=== PATIENT | female | born 1955 | race American Indian/Alaskan Native ===

== ENCOUNTER 2019-02-24 22:48 | Emergency (ER) | payer SELFPAY ==
[2019-02-24 22:58] VITALS: BP 125/91
--- NOTE | 2019-03-08 08:16 | Emergency Department Report ---
Blank Doc - Documentation Documentation: Patient left without being seen This note has been generated by me, Dr. Evgeny Reid III, MD, the [employer] for the emergency department. I have not seen this patient personally.
== END 2019-02-24 23:30 | disposition left against medical advice (07) ==
LOC: ED 22:48
DX: S61.214A Laceration without foreign body of right ring finger without damage to nail, initial encounter (principal); W26.8XXA Contact with other sharp object(s), not elsewhere classified, initial encounter; Y93.89 Activity, other specified; Y92.89 Other specified places as the place of occurrence of the external cause; Y99.8 Other external cause status; Z53.21 Procedure and treatment not carried out due to patient leaving prior to being seen by health care provider

== ENCOUNTER 2020-08-18 18:42 | Emergency (ER) | payer SELFPAY ==
[2020-08-18 18:53] VITALS: BP 148/98
[2020-08-18] MEDS ORDERED: RABIES VACCINE, HUMAN DIPLOID/PF 2.5 UNIT/ML VIAL IM ONE (23:58)
[2020-08-18] MEDS ORDERED: RABIES IMMUNE GLOBULIN P/F 300 UNIT/ML INJ 5 ML IM ONE (23:58)
[2020-08-19] MEDS ORDERED: DIPHtheria,PERTUSSIS(ACELL),TETANUS VACCINE/PF 0.5 ML VIAL IM ONE (00:12)
--- NOTE | 2020-08-19 00:15 | Emergency Department Report ---
ED Animal Bite HPI - General Chief Complaint: Animal Bite Stated Complaint: DOG BITE Time Seen by Provider: 08/18/20 23:25 Source: patient Mode of arrival: Ambulatory Limitations: No Limitations - History of Present Illness Initial Comments: This is a 64-year-old female brought by mother nontoxic, well nourished in appearance, no acute signs of distress presents to the ED with c/o of dog bite to right upper arm and right thigh that occured this evening. Patient stated that this was a neighbor dog that bite her. Patient was told that dog does not have any rabies shots. Patient denies any head trauma or any other trauma. Patient states that she is not up-to-date with tetanus. Patient denies any fever, chills, nausea, vomiting, headache, stiff neck. Patient denies any allergies or significant past medical history. Patient stated police and animal control are notified. MD Complaint: animal bite -: This evening Right: Arm, Thigh Animal: dog Animal Control Notified: Yes Description: household pet Mechanism: bite Severity scale (0 -10): 8 Context: unprovoked Associated Symptoms: none. denies: erythema, discharge from wound, bleeding, fever, chills, rash, loss of consciousness, cough, headache, diaphoresis, brandon rtness of breath - Related Data Patient Tetanus UTD: No Previous Rx's Medication Instructions Recorded Last Taken Type Amoxicillin/K Clav Tab [Augmentin 1 tab PO Q12HR #20 tab 08/19/20 Unknown Rx 875 mg] Ibuprofen [Motrin] 600 mg PO Q8H PRN #12 tablet 08/19/20 Unknown Rx Allergies Allergy/AdvReac Type Severity Reaction Status Date / Time No Known Allergies Allergy Verified 08/18/20 23:59 ED Review of Systems ROS: Stated complaint: DOG BITE Other details as noted in HPI Comment: All other systems reviewed and negative Constitutional: denies: chills, fever Eyes: denies: eye pain, eye discharge, vision change ENT: denies: ear pain, throat pain Respiratory: denies: cough, shortness of breath, wheezing Cardiovascular: denies: chest pain, palpitations Endocrine: no symptoms reported Gastrointestinal: denies: abdominal pain, nausea, diarrhea Genitourinary: denies: urgency, dysuria, discharge Musculoskeletal: denies: back pain, joint swelling, arthralgia Skin: denies: rash, lesions Neurological: denies: headache, weakness, paresthesias Psychiatric: denies: anxiety, depression Hematological/Lymphatic: denies: easy bleeding, easy bruising ED Past Medical Hx - Past Medical History Previous Medical History?: Yes Hx Hypertension: Yes - Surgical History Past Surgical History?: No - Medications Home Medications: Home Medications Medication Instructions Recorded Confirmed Last Taken Type Amoxicillin/K Clav Tab [Augmentin 1 tab PO Q12HR #20 tab 08/19/20 Unknown Rx 875 mg] Ibuprofen [Motrin] 600 mg PO Q8H PRN #12 tablet 08/19/20 Unknown Rx ED Physical Exam - General Limitations: No Limitations General appearance: alert, in no apparent distress - Head Head exam: Present: atraumatic, normocephalic - Eye Eye exam: Present: normal appearance - Neck Neck exam: Present: normal inspection, full ROM. Absent: tenderness, meningismus, lymphadenopathy - Respiratory Respiratory exam: Absent: respiratory distress - GI/Abdominal GI/Abdominal exam: Present: soft, normal bowel sounds. Absent: distended, t enderness, guarding, rebound, rigid, diminished bowel sounds - Extremities Exam Extremities exam: Present: normal inspection, full ROM, tenderness, normal capillary refill. Absent: joint swelling - Expanded Upper Extremity Exam Right General: Present: normal inspection Shoulder Exam: Present: normal inspection, full ROM. Absent: tenderness, swelling, abrasion, laceration, ecchymosis, deformity, crepidus, dislocation, erythema, tenderness over AC joint Upper Arm exam: Present: full ROM, tenderness, laceration (1 cm superficial with no foreign body). Absent: swelling, abrasion, ecchymosis, deformity, crepidus, dislocation, erythema Elbow exam: Present: normal inspection, full ROM. Absent: tenderness, swelling Forearm Wrist exam: Present: normal inspection, full ROM. Absent: tenderness, swelling Hand Wrist exam: Present: normal inspection, full ROM. Absent: tenderness, swelling Vascular: Present: normal capillary refill. Absent: vascular compromise (Neurovascular within normal limits) - Expanded Lower Extremity Exam Right Hip exam: Present: normal inspection, full ROM, external rotation, internal rotation, pelvic stability. Absent: tenderness, swelling, abrasion, laceration, ecchymosis, deformity, crepidus, dislocation, erythema, shortening Upper Leg exam: Present: full ROM, tenderness, laceration (2 cm lac with no foreign body noted). Absent: swelling, abrasion, ecchymosis, deformity, crepidus, dislocation, erythema Knee exam: Present: normal inspection, full ROM. Absent: tenderness, swelling Lower Leg exam: Present: normal inspection, full ROM. Absent: tenderness, swelling Ankle exam: Present: normal inspection, full ROM. Absent: tenderness, swelling Foot/Toe exam: Present: normal inspection, full ROM. Absent: tenderness, swelling Neuro vascular tendon exam: Present: no vascular compromise Gait: Positive: observed and normal 1 - 2 cm lac - Back Exam Back exam: Present: normal inspection - Neurological Exam Neurological exam: Present: alert, oriented X3, normal gait - Psychiatric Psychiatric exam: Present: normal affect, normal mood - Skin Skin exam: Present: warm, dry, intact, normal color. Absent: rash ED Course Vital Signs 08/18/20 18:51 Temperature 97.6 F Pulse Rate 112 H Respiratory 18 Rate Blood Pressure 148/98 [Right] O2 Sat by Pulse 98 Oximetry - Reevaluation(s) Reevaluation #1: 08/19/20 00:15 Patient is speaking in full sentences with no signs of distress noted. - Laceration /Wound Repair Right Thigh Wound Location: lower extremity (Right thigh) Wound Length (cm): 2 Wound's Depth, Shape: superficial Wound Explored: clean Irrigated w/ Saline (ccs): 40 Betadine Prep?: Yes Volume Anesthetic (ccs): 3 (2% lidocaine plain) Wound Repaired With: sutures Suture Size/Type: 4:0, proline Number of Sutures: 1 Layer Closure?: No Sterile Dressing Applied?: Yes Progress: Under sterile field, I used Betadine to clean the area. I then used 40 mL of normal saline to flush the area. I then used 2% lidocaine plain and injected 3 mL to the wound. I then used a 4-0 Prolene to suture the laceration. Number of stitches 1 very loosely. I then applied a sterile 4 x 4 with tape. Minimal bleeding noted but is under control. Patient tolerated procedure well with no signs of distress. Right Arm Wound Location: upper extremity (right upper arm) Wound Length (cm): 1 Wound's Depth, Shape: superficial Wound Explored: clean Irrigated w/ Saline (ccs): 40 Betadine Prep?: Yes Volume Anesthetic (ccs): 2 (2% lidocaine plain) Wound Repaired With: sutures Suture Size/Type: 4:0, proline Number of Sutures: 1 (Loosely) Layer Closure?: No Sterile Dressing Applied?: Yes Progress: Under sterile field, I used Betadine to clean the area. I then used 40 mL of normal saline to flush the area. I then used 2% lidocaine plain and injected 2 mL to the wound. I then used a 4-0 Prolene to suture the laceration. Number of stitches 1 very loosely. I then applied a sterile 4 x 4 with tape. Minimal bleeding noted but is under control. Patient tolerated procedure well with no signs of distress. Critical care attestation.: If time is entered above; I have spent that time in minutes in the direct care of this critically ill patient, excluding procedure time. ED Disposition Clinical Impression: Laceration Dog bite Qualifiers: Encounter type: initial encounter Qualified Code(s): W54.0XXA - Bitten by dog, initial encounter Disposition: DC-01 TO HOME OR SELFCARE Is pt being admited?: No Does the pt Need Aspirin: No Condition: Stable Instructions: Animal Bite, Adult, Dybo-ji-Ytgl, Laceration Care, Adult Additional Instructions: Follow-up with a primary care doctor in 3-5 days or if symptoms worsen and continue return to emergency room as soon as possible. Return in 10 days for suture removal. You must complete the rabies vaccines on 08/22/2020, 08/26/2020, 09/02/2020. Prescriptions: Amoxicillin/K Clav Tab [Augmentin 875 mg] 1 tab PO Q12HR #20 tab Ibuprofen [Motrin] 600 mg PO Q8H PRN #12 tablet PRN Reason: Pain Referrals: PRIMARY CARE, [Primary Care Provider] - 3-5 Days HOUSTON PLATT MD [Staff Physician] - 3-5 Days ED Medical Decision Making - Radiology Data Referring Physician: JOSE E HARTLEY Patient Name: TREVON LAW Date of : 1955 Sex: Female Report Date: 2020-08-19 Report Status: Finalized [address] [address] XRay Report Signed Patient: TREVON LAW MR#: [id number] 4 : 1955 Acct:[id number] Age/Sex: 64 / F ADM Date: 08/18/20 Loc: ED Attending Dr: Ordering Physician: JOSE E HARTLEY NP Date of Service: 08/18/20 Procedure(s): XR humerus 2+V RT Accession Number(s): [id number] cc: JOSE E HARTLEY NP Fluoro Time In Minutes: RIGHT HUMERUS RADIOGRAPH, 2 VIEWS INDICATION / CLINICAL INFORMATION: dog bite COMPARISON: None available. FINDINGS: BONES / JOINT(S): No acute displaced fracture or subluxation. No significant arthritis. SOFT TISSUES: Mild soft tissue swelling of the right upper extremity. No radiopaque foreign object identified. ADDITIONAL FINDINGS: None. Signer Name: Lorri Zaragoza MD Signed: 08/19/2020 12:22 AM Workstation Name: [id number] Transcribed By: [facility] Dictated By: Lorri Zaragoza MD Electronically Authenticated By: Lorri Zaragoza MD Signed Date/Time: 08/19/2021 DD/ TD/TT: Referring Physician: JOSE E HARTLEY Patient Name: TREVON LAW Date of : 1955 Sex: Female Report Date: 2020-08-19 Report Status: Finalized [address] [address] XRay Report Signed Patient: TREVON LAW MR#: [id number] 4 : 1955 Acct:[id number] Age/Sex: 64 / F ADM Date: 08/18/20 Loc: ED Attending Dr: Ordering Physician: JOSE E HARTLEY NP Date of Service: 08/18/20 Procedure(s): XR humerus 2+V RT Accession Number(s): [id number] cc: JOSE E HARTLEY NP Fluoro Time In Minutes: RIGHT HUMERUS RADIOGRAPH, 2 VIEWS INDICATION / CLINICAL INFORMATION: dog bite COMPARISON: None available. FINDINGS: BONES / JOINT(S): No acute displaced fracture or subluxation. No significant arthritis. SOFT TISSUES: Mild soft tissue swelling of the right upper extremity. No radiopaque foreign object identified. ADDITIONAL FINDINGS: None. Signer Name: Lorri Zaragoza MD Signed: 08/19/2020 12:22 AM Workstation Name: [id number] Transcribed By: [facility] Dictated By: Lorri Zaragoza MD Electronically Authenticated By: Lorri Zaragoza MD Signed Date/Time: 08/19/2021 DD/ TD/TT: Referring Physician: JOSE E HARTLEY Patient Name: TREVON LAW Date of : 1955 Sex: Female Report Date: 2020-08-19 Report Status: [place] [address] XRay Report Signed Patient: TREVON LAW MR#: [id number] 4 : 1955 ct:[id number] Age/Sex: 64 / F ADM Date: 08/18/20 Loc: ED Attending Dr: Ordering Physician: JOSE E HARTLEY NP Date of Service: 08/18/20 Procedure(s): XR femur 2+V RT Accession Number(s): [id number] cc: JOSE E HARTLEY NP Fluoro Time In Minutes: RIGHT FEMUR RADIOGRAPH, 2 VIEWS INDICATION / CLINICAL INFORMATION: dog bite COMPARISON: None available. FINDINGS: BONES / JOINT(S): No acute displaced fracture or subluxation. Moderate osteoarthritis of the knee. SOFT TISSUES: Soft tissue swelling along the lateral aspect of the thigh. No radiopaque foreign object identified. ADDITIONAL FINDINGS: None. Signer Name: Lorri Zaragoza MD Signed: 08/19/2020 12:24 AM Workstation Name: [id number] Transcribed By: [facility] Dictated By: Lorri Zaragoza MD Electronically Authenticated By: Lorri Zaragoza MD Signed Date/Time: 08/19/2023 DD/ TD/TT: - Medical Decision Making This is a 64-year-old female that presents with dog bite. Patient is stable was examined by me. Patient received immunoglobulin and rabies vaccine. Patient was instructed to receive the full rabies immunizations on days number 3, 7, and 14. Patient is discharged with Augmentin and motrin. The bite wound has been cleaned with soap and water and a sterile dressing has been applied. Patient was also instructed to return in 10 days for suture removal. A suture has been placed loosely to approximate the laceration. Patient was educated on proper wound care. Patient was instructed to Follow-up with a primary care doctor in 3-5 days or if symptoms worsen and continue return to emergency room as soon as possible. At time of discharge, the patient does not seem toxic or ill in appearance. No acute signs of distress noted. Patient agrees to discharge treatment plan of care. No further questions noted by the patient.
--- NOTE | 2020-08-19 00:27 | XRay Report ---
RIGHT HUMERUS RADIOGRAPH, 2 VIEWS INDICATION / CLINICAL INFORMATION: dog bite COMPARISON: None available. FINDINGS: BONES / JOINT(S): No acute displaced fracture or subluxation. No significant arthritis. SOFT TISSUES: Mild soft tissue swelling of the right upper extremity. No radiopaque foreign object id entified. ADDITIONAL FINDINGS: None. Signer Name: Lorri Zaragoza MD Signed: 08/19/2020 12:22 AM Workstation Name: [id number]
--- NOTE | 2020-08-19 00:28 | XRay Report ---
RIGHT FEMUR RADIOGRAPH, 2 VIEWS INDICATION / CLINICAL INFORMATION: dog bite COMPARISON: None available. FINDINGS: BONES / JOINT(S): No acute displaced fracture or subluxation. Moderate osteoarthritis of the knee. SOFT TISSUES: Soft tissue swelling along the lateral aspect of the thigh. No radiopaque foreign objec t identified. ADDITIONAL FINDINGS: None. Signer Name: Lorri Zaragoza MD Signed: 08/19/2020 12:24 AM Workstation Name: [id number]
== END 2020-08-19 01:15 | disposition home or self-care (01) ==
LOC: ED 18:42
DX: S41.111A Laceration without foreign body of right upper arm, initial encounter (principal); S71.112A Laceration without foreign body, left thigh, initial encounter; I10 Essential (primary) hypertension; Z79.1 Long term (current) use of non-steroidal anti-inflammatories (NSAID); Z79.2 Long term (current) use of antibiotics; W54.0XXA Bitten by dog, initial encounter; Y93.89 Activity, other specified; Y92.89 Other specified places as the place of occurrence of the external cause; Y99.8 Other external cause status
CPT/HCPCS: 90375; 90471; 90675; 96372

== ENCOUNTER 2020-11-09 12:03 | Emergency (ER) | payer BC ==
[2020-11-09] MEDS ORDERED: BENZONATATE 100 MG CAP PO ONE (12:40)
[2020-11-09] MEDS ORDERED: ONDANSETRON 4 MG ODT TAB PO ONE (12:40)
[2020-11-09 12:56] LABS: Basophils % (Auto) 0.5 % (0.0-1.8); Eosinophils # (Auto) 0.1 K/mm3 (0.0-0.4); Eosinophils % (Auto) 1.3 % (0.0-4.3); Hematocrit 34.1 % (30.3-42.9); Hemoglobin 11.2 gm/dl (10.1-14.3); Lymphocytes # (Auto) 1.4 K/mm3 (1.2-5.4); Lymphocytes % (Auto) 24.6 % (13.4-35.0); Mean Corpuscular HGB Conc 33 % (30-34); Mean Corpuscular Volume 90 fl (79-97); Monocytes # (Auto) 0.5 K/mm3 (0.0-0.8); Monocytes % (Auto) 8.3 % (0.0-7.3); Platelet Count 342 K/mm3 (140-440); Red Cell Distribution Width 15.7 % (13.2-15.2)
--- NOTE | 2020-11-09 13:06 | XRay Report ---
ACUTE ABDOMINAL SERIES 3 VIEWS INDICATION: abd pain, cough. COMPARISON: No relevant prior imaging study available. FINDINGS: No acute findings on the included chest radiograph. Bowel gas pattern is within normal limits. There is mild constipation. No abnormal calcifications are seen. IMPRESSION: 1. No radiographic evidence of acute abdomen. Signer Name: Gerry Goss MD Signed: 11/09/2020 1:02 PM Workstation Name: [id number]
[2020-11-09 13:22] LABS: Alanine Aminotransferase 14 units/L (7-56); Albumin 3.8 g/dL (3.9-5); BUN/Creatinine Ratio 10; Blood Urea Nitrogen 9 mg/dL (7-17); Calcium 8.6 mg/dL (8.4-10.2); Hemolysis Index 10
[2020-11-09] MEDS ORDERED: POTASSIUM CHLORIDE ER 20 MEQ TAB PO ONE (13:23)
--- NOTE | 2020-11-09 13:23 | Emergency Department Report ---
HPI - General Chief Complaint: Abdominal Pain Time Seen by Provider: 11/09/20 12:18 - HPI HPI: This is a 64-year-old female who presents to the emergency department with complaint of sinus congestion causing a headache, nausea with vomiting, a productive cough with white sputum, and some constipation with mild abdominal discomfort. All this has been going on for the past week. The patient says that she has tried some kkal-cow-ayzlroo medications for her symptoms including stool softeners, without any relief. She has a past medical history of hyper tension. She denies any shortness of breath, chest pain, loss of taste or smell, fever, diarrhea, dysuria. No recent travel or sick contacts at home. No known exposure to anyone with COVID-19. ED Past Medical Hx - Past Medical History Previous Medical History?: Yes Hx Hypertension: Yes - Surgical History Past Surgical History?: No - Social History Smoking Status: Former Smoker - Medications Home Medications: Home Medications Medication Instructions Recorded Confirmed Last Taken Type Amoxicillin/K Clav Tab [Augmentin 1 tab PO Q12HR #20 tab 08/19/20 Unknown Rx 875 mg] Ibuprofen [Motrin] 600 mg PO Q8H PRN #12 tablet 08/19/20 Unknown Rx Cetirizine HCl [Zyrtec 10mg tab] 10 mg PO QDAY #10 tablet 11/09/20 Unknown Rx Docusate Sodium [Colace] 100 mg PO BID PRN #20 capsule 11/09/20 Unknown Rx Fluticasone [Flonase] 1 spray NS QDAY #1 bottle 11/09/20 Unknown Rx guaiFENesin/CODEINE [Robitussin AC] 5 ml PO Q6H PRN #100 oral.liqd 11/09/20 Unknown Rx ED Review of Systems ROS: Stated complaint: COUGHING,NAUSEA & VOMITING Other details as noted in HPI Comment: All other systems reviewed and negative Constitutional: denies: chills, fever Eyes: denies: eye pain, vision change ENT: ear pain, congestion Respiratory: cough. denies: shortness of breath Cardiovascular: denies: chest pain, palpitations Gastrointestinal: abdominal pain, nausea, constipation. denies: diarrhea Genitourinary: denies: dysuria, discharge Musculoskeletal: denies: back pain, arthralgia Skin: denies: rash, lesions Neurological: headache. denies: weakness, numbness, paresthesias Physical Exam - Physical Exam Vital Signs: Vital Signs 11/09/20 11/09/20 11/09/20 12:11 12:28 12:58 Temperature 98.4 F Pulse Rate 89 68 Respiratory 17 19 19 Rate Blood Pressure 134/83 Blood Pressure 124/83 [Left] O2 Sat by Pulse 96 99 Oximetry Physical Exam: GENERAL: The patient is well-developed well-nourished. HENT: Normocephalic. Atraumatic. Patient has moist mucous membranes. Oropharynx is clear without any tonsillar hypertrophy, erythema or exudates. Normal-appearing bilateral tympanic membranes and patent external ear canals. EYES: Extraocular motions are intact. Pupils equal reactive to light bilaterally. NECK: Supple. Trachea is midline. CHEST/LUNGS: Clear to auscultation. No cough heard during examination. No tach ypnea or accessory muscle use. There is no respiratory distress noted. HEART/CARDIOVASCULAR: Regular. There is no tachycardia. There is no murmur. ABDOMEN: Abdomen is soft. Mild abdominal tenderness to palpation. No guarding. Patient has normal bowel sounds. There is no abdominal distention. SKIN: Skin is warm and dry. NEURO: The patient is awake, alert, and oriented. The patient is cooperative. The patient has no focal neurologic deficits. Normal speech. MUSCULOSKELETAL: There is no tenderness or deformity. There is no limitation range of motion. ED Course Vital Signs 11/09/20 11/09/20 11/09/20 12:11 12:28 12:58 Temperature 98.4 F Pulse Rate 89 68 Respiratory 17 19 19 Rate Blood Pressure 134/83 Blood Pressure 124/83 [Left] O2 Sat by Pulse 96 99 Oximetry ED Medical Decision Making - Lab Data Result diagrams: 11/09/20 12:40 11/09/20 12:40 Lab Results 11/09/20 11/09/20 11/09/20 Range/Units 12:40 12:40 13:07 WBC 5.8 (4.5-11.0) K/mm3 RBC 3.80 (3.65-5.03) M/mm3 Hgb 11.2 (10.1-14.3) gm/dl Hct 34.1 (30.3-42.9) % MCV 90 (79-97) fl MCH 30 (28-32) pg MCHC 33 (30-34) % RDW 15.7 H (13.2-15.2) % Plt Count 342 (140-440) K/mm3 Lymph % (Auto) 24.6 (13.4-35.0) % Chase % (Auto) 8.3 H (0.0-7.3) % Eos % (Auto) 1.3 (0.0-4.3) % Baso % (Auto) 0.5 (0.0-1.8) % Lymph # (Auto) 1.4 (1.2-5.4) K/mm3 Chase # (Auto) 0.5 (0.0-0.8) K/mm3 Eos # (Auto) 0.1 (0.0-0.4) K/mm3 Baso # (Auto) 0.0 (0.0-0.1) K/mm3 Seg Neutrophils % 65.3 (40.0-70.0) % Seg Neutrophils # 3.8 (1.8-7.7) K/mm3 Sodium 144 (137-145) mmol/L Potassium 3.0 L (3.6-5.0) mmol/L Chloride 109.0 H (98-107) mmol/L Carbon Dioxide 26 (22-30) mmol/L Anion Gap 12 mmol/L BUN 9 (7-17) mg/dL Creatinine 0.9 (0.6-1.2) mg/dL Estimated GFR > 60 ml/min BUN/Creatinine Ratio 10 % Glucose 87 (65-100) mg/dL Calcium 8.6 (8.4-10.2) mg/dL Total Bilirubin < 0.20 (0.1-1.2) mg/dL Direct Bilirubin < 0.2 (0-0.2) mg/dL Indirect Bilirubin 0.0 mg/dL AST 21 (5-40) units/L ALT 14 (7-56) units/L Alkaline Phosphatase 54 (35-129) units/L Total Protein 6.1 L (6.3-8.2) g/dL Albumin 3.8 L (3.9-5) g/dL Albumin/Globulin Ratio 1.7 % Lipase 37 (13-60) units/L Urine Color Straw (Yellow) Urine Turbidity Clear (Clear) Urine pH 6.0 (5.0-7.0) Ur Specific [place] 1.005 (1.003-1.030) Urine Protein <15 mg/dl (Negative) mg/dL Urine Glucose (UA) Neg (Negative) mg/dL Urine Ketones Tr (Negative) mg/dL Urine Blood Neg (Negative) Urine Nitrite Neg (Negative) Urine Bilirubin Neg (Negative) Urine Urobilinogen < 2.0 (<2.0) mg/dL Ur Leukocyte Esterase Neg (Negative) Urine WBC (Auto) < 1.0 (0.0-6.0) /HPF Urine RBC (Auto) 1.0 (0.0-6.0) /HPF - Radiology Data Radiology results: image reviewed interpreted by me: Chest x-ray does not show any acute process. There are no pleural effusions, obvious pneumonia and there is no pneumothorax. No significant cardiomegaly. Abdominal x-ray shows nonspecific nonobstructive bowel gas. Increased stool volume. No free air. - Medical Decision Making This patient presents with a 1 week history of multiple symptoms including a cough, sinus congestion with a sinus headache, abdominal discomfort, nausea, constipation. Heart and lung sounds are normal to auscultation. There is some reproducible mild abdominal tenderness to palpation. However the abdomen is soft, nondistended and nontoxic in appearance. Chest x-ray does not show any pneumonia, pleural effusions, pneumothorax, or any other acute process. Abdominal x-ray shows increased stool volume. Otherwise there is nonspecific nonobstructive bowel gas. No free air. The patient's labs have been mostly unremarkable including CBC, metabolic panel and urinalysis. There is mild hypokalemia with a potassium of 3 that was replaced with potassium chloride. Vital signs have been reassuring throughout her ED course including being afebrile. Patient appears safe for discharge home at this time. She has been instructed to follow-up with her primary care physician in the next few days. Given her set of symptoms, as well as this current pandemic, it is possible the patient could have COVID-19. We are unable to test her for this with [id number]-sp-ikot testing at this time and the patient does not require admission. She has been instructed to seek outpatient COVID-19 testing. We discussed quarantine and isolation from those who are immunocompromised, elderly and chronically ill/debilitated. The patient has been given a prescription for Flonase, Zyrtec, Colace and Robitussin-AC. She will return to the emergency department with any worsening of her symptoms or with any acute distress. Critical Care Time: No Critical care attestation.: If time is entered above; I have spent that time in minutes in the direct care of this critically ill patient, excluding procedure time. ED Disposition Clinical Impression: Sinus congestion, Viral syndrome, Hypokalemia Upper respiratory infection Qualifiers: URI type: unspecified URI Qualified Code(s): J06.9 - Acute upper respiratory infection, unspecified Disposition: DC-01 TO HOME OR SELFCARE Is pt being admited?: No Condition: Stable Instructions: Upper Respiratory Infection, Adult, Sinus Headache, Viral Illness, Adult, Abdominal Pain (ED) Additional Instructions: Please follow-up with your primary care physician in the next few days. Given your symptoms, as well as this current pandemic, it is possible that you could have COVID-19. Unfortunately I am unable to test you for COVID-19 through the emergency department at this time. I recommend that you try to quarantine or isolate away from those who are immunocompromised, chronically ill/debili tated or elderly. Please seek outpatient COVID-19 testing. This can be done at some primary care offices, some urgent cares, and there should be a listing of testing facilities through the [facility]. Take all medications as prescribed. You have been prescribed a medication that is sedating and therefore should not be taken prior to driving, working, and responsible for children and in no way should be mixed with alcohol of any quantity. Return to the emergency department with any worsening of your symptoms, new or concerning symptoms not addressed during this current emergency department visit, or with any acute distress. Prescriptions: Docusate Sodium [Colace] 100 mg PO BID PRN #20 capsule PRN Reason: Constipation Fluticasone [Flonase] 1 spray NS QDAY #1 bottle guaiFENesin/CODEINE [Robitussin AC] 5 ml PO Q6H PRN #100 oral.liqd PRN Reason: Cough Cetirizine HCl [Zyrtec 10mg tab] 10 mg PO QDAY #10 tablet Referrals: MARYLU BULLOCK MD [Primary Care Provider] - 3-5 Days Time of Disposition: 14:41
[2020-11-09 13:34] LABS: Bilirubin,Direct < 0.2 mg/dL (0-0.2)
[2020-11-09 14:26] LABS: Bilirubin,Urine NEG (Negative); Blood,Urine NEG (Negative); Color,Urine Straw (Yellow); Protein,Urine <15 mg/dL mg/dL (Negative); Urobilinogen,Urine < 2.0 mg/dL (<2.0); WBC,Urine < 1.0 /HPF (0.0-6.0)
[2020-11-09 15:08] VITALS: BP 118/88
== END 2020-11-09 15:08 | disposition home or self-care (01) ==
LOC: ED 12:03
DX: J06.9 Acute upper respiratory infection, unspecified (principal); B34.9 Viral infection, unspecified; E87.6 Hypokalemia; R09.81 Nasal congestion; I10 Essential (primary) hypertension; Z87.891 Personal history of nicotine dependence; Z79.1 Long term (current) use of non-steroidal anti-inflammatories (NSAID); Z79.2 Long term (current) use of antibiotics; Z79.899 Other long term (current) drug therapy
CPT/HCPCS: 36415; 74022; 80048; 80076; 81001; 83690; 85025; Q0162

== ENCOUNTER 2020-11-17 17:28 | Emergency (ER) | payer BC ==
[2020-11-17 17:32] VITALS: BP 155/91
--- NOTE | 2020-11-17 18:16 | XRay Report ---
CHEST 2 VIEWS INDICATION / CLINICAL INFORMATION: cough. COMPARISON: 11/09/20 FINDINGS: SUPPORT DEVICES: None. HEART / MEDIASTINUM: No significant abnormality. LUNGS / PLEURA: No significant pulmonary or pleural abnormality. No pneumothorax. ADDITIONAL FINDINGS: No significant additional findings. IMPRESSION: 1. No acute findings. No change. Signer Name: Yonathan Goodrich MD Signed: 11/17/2020 6:11 PM Workstation Name: [id number]
[2020-11-17 18:44] LABS: Basophils # (Auto) 0.1 K/mm3 (0.0-0.1); Eosinophils # (Auto) 0.1 K/mm3 (0.0-0.4); Eosinophils % (Auto) 1.9 % (0.0-4.3); Hematocrit 35.7 % (30.3-42.9); Hemoglobin 12.1 gm/dl (10.1-14.3); Lymphocytes # (Auto) 1.8 K/mm3 (1.2-5.4); Lymphocytes % (Auto) 27.7 % (13.4-35.0); Mean Corpuscular HGB Conc 34 % (30-34); Mean Corpuscular Volume 90 fl (79-97); Monocytes # (Auto) 0.5 K/mm3 (0.0-0.8); Monocytes % (Auto) 7.7 % (0.0-7.3); Platelet Count 309 K/mm3 (140-440); Red Blood Count 3.95 M/mm3 (3.65-5.03); Red Cell Distribution Width 16.3 % (13.2-15.2)
[2020-11-17 19:06] LABS: Alanine Aminotransferase 13 units/L (7-56); BUN/Creatinine Ratio 11; Blood Urea Nitrogen 10 mg/dL (7-17); Calcium 9.2 mg/dL (8.4-10.2); Hemolysis Index 3
--- NOTE | 2020-11-17 20:01 | Emergency Department Report ---
Minor Respiratory - HPI Chief Complaint: Upper Respiratory Infection Stated Complaint: POSSIBLE SINUS INFECTION Time Seen by Provider: 11/17/20 17:41 Pain Location: Throat, Nose Minor Respiratory: Yes Sore Throat, No Rhinorrhea, No Able to Tolerate Fluids, No Ear Pain, No Cough, No Sick Contacts, No Hemoptysis, No Chest Pain, No Shortness of Breath, No Fever Other History: This is a 64-year-old female presents the ED complaining of feeling sick. Patient states that she has been having cough, sore throat and headaches since last week. Patient states she was seen here for same symptoms. Patient states she has been coughing intermittently daily. Patient denies any fever, chills, shortness of breath. She denies being around anyone that is been sick or that has Covid. Patient states that prior medical history positive for hypertension which she takes medication for. Patient states that she has been having a lot of sinus congestion that is not going away. ED Review of Systems ROS: Stated complaint: POSSIBLE SINUS INFECTION Other details as noted in HPI Comment: All other systems reviewed and negative ED Past Medical Hx - Past Medical History Previous Medical History?: Yes Hx Hypertension: Yes - Social History Smoking Status: Former Smoker - Medications Home Medications: Home Medications Medication Instructions Recorded Confirmed Last Taken Type Ibuprofen [Motrin] 600 mg PO Q8H PRN #12 tablet 08/19/20 Unknown Rx Cetirizine HCl [Zyrtec 10mg tab] 10 mg PO QDAY #10 tablet 11/09/20 Unknown Rx Docusate Sodium [Colace] 100 mg PO BID PRN #20 capsule 11/09/20 Unknown Rx Amoxicillin/K Clav Tab [Augmentin 1 tab PO Q12HR #20 tab 11/17/20 Unknown Rx 875MG TAB] Benzonatate [Tessalon Perles] 100 mg PO Q8HR #30 capsule 11/17/20 Unknown Rx Fluticasone [Flonase] 1 spray NS QDAY #1 bottle 11/17/20 Unknown Rx Pseudoephedrine ER [Sudafed 12 Hr] 120 mg PO BID #20 tablet.er 11/17/20 Unknown Rx guaiFENesin/CODEINE [Robitussin AC] 5 ml PO Q6H PRN #100 oral.liqd 11/17/20 Unknown Rx Minor Respiratory Exam - Exam General: Vital signs noted. No distress. Alert and acting appropriately. HEENT: Yes Moist Mucous Membranes, No Pharyngeal Erythema, No Pharyngeal Exudates, No Rhinorrhea, No Conjuctival Injection, No Frontal Tenderness, No Maxillary Tenderness Ear: Neither TM Bulge, Neither TM Erythema, Neither EAC Pain, Neither EAC Discharge Neck: Yes Supple, No Adenopathy Lungs: Yes Good Air Exchange, No Wheezes, No Ronchi, No Stridor, No Cough, No Labored Respirations, No Retractions, No Use of Accessory Muscles, No Other Abnormal Lung Sounds Heart: Yes Regular, No Murmur Abdomen: Yes Normal Bowel Sounds, No Tenderness, No Peritoneal Signs Skin: No Rash, No Edema Neurologic: Alert and oriented, no deficits. Musculoskeletal: Unremarkable. ED Course Vital Signs 11/17/20 17:31 Temperature 98.4 F Pulse Rate 90 Respiratory 16 Rate Blood Pressure 155/91 [Right] O2 Sat by Pulse 96 Oximetry ED Medical Decision Making - Lab Data Result diagrams: 11/17/20 18:20 11/17/20 18:20 Laboratory Tests 11/17/20 11/17/20 18:20 18:20 WBC 6.3 RBC 3.95 Hgb 12.1 Hct 35.7 MCV 90 MCH 31 MCHC 34 RDW 16.3 H Plt Count 309 Lymph % (Auto) 27.7 Mineral % (Auto) 7.7 H Eos % (Auto) 1.9 Baso % (Auto) 1.0 Lymph # (Auto) 1.8 Mineral # (Auto) 0.5 Eos # (Auto) 0.1 Baso # (Auto) 0.1 Seg Neutrophils % 61.7 Seg Neutrophils # 3.9 Sodium 143 Potassium 3.0 L Chloride 105.2 Carbon Dioxide 22 Anion Gap 19 BUN 10 Creatinine 0.9 Estimated GFR > 60 BUN/Creatinine Ratio 11 Glucose 99 Calcium 9.2 Total Bilirubin < 0.20 AST 18 ALT 13 Alkaline Phosphatase 56 Total Protein 6.5 Albumin 4.0 Albumin/Globulin Ratio 1.6 - Radiology Data Radiology results: report reviewed, image reviewed Chest x-ray does not show any acute process. There are no pleural effusions, obvious pneumonia and there is no pneumothorax. No significant cardiomegaly. - Medical Decision Making 64-year-old female presents to the ED with symptoms x1 week. Patient states she is medications with no relief. All labs today were normal. X-ray shows no acute findings. Vital signs were normal throughout ED stay. Patient was afebrile and had no respiratory distress throughout the ED stay. Discussed follow-up with primary care physician patient. Discussed a trial of Augmentin to treat sinusitis. Discussed with patient that symptoms may last up to 2 weeks due to viral syndrome. Patient did note that she Covid tested last week which was negative. Patient was complaining really bad sinus headache so Sudafed was prescribed. I did advise patient states that she takes her blood pressure medication daily as Sudafed may elevate blood pressure. Critical care attestation.: If time is entered above; I have spent that time in minutes in the direct care of this critically ill patient, excluding procedure time. ED Disposition Clinical Impression: Sinus congestion, Sinusitis Disposition: - TO HOME OR SELFCARE Is pt being admited?: No Does the pt Need Aspirin: No Condition: Stable Instructions: Upper Respiratory Infection, Adult, Sinusitis, Adult, [id number] Additional Instructions: Make sure to follow up with the primary care physician as discussed. Take all your medications as you've been prescribed. If you have any worsening symptoms or develop new symptoms please return to ED immediately. Prescriptions: Amoxicillin/K Clav Tab [Augmentin 875MG TAB] 1 tab PO Q12HR #20 tab Fluticasone [Flonase] 1 spray NS QDAY #1 bottle guaiFENesin/CODEINE [Robitussin AC] 5 ml PO Q6H PRN #100 oral.liqd PRN Reason: Cough Pseudoephedrine ER [Sudafed 12 Hr] 120 mg PO BID #20 tablet.er Benzonatate [Tessalon Perles] 100 mg PO Q8HR #30 capsule Referrals: MARYLU BULLOCK MD [Primary Care Provider] - 3-5 Days [facility] [place] [Outside] - 3-5 Days [facility] [Outside] - 3-5 Days Forms: Work/School Release Form(ED) Time of Disposition: 21:18
== END 2020-11-17 21:06 | disposition home or self-care (01) ==
LOC: ED 17:28
DX: J32.9 Chronic sinusitis, unspecified (principal); R09.81 Nasal congestion; I10 Essential (primary) hypertension; Z87.891 Personal history of nicotine dependence; Z79.1 Long term (current) use of non-steroidal anti-inflammatories (NSAID); Z79.899 Other long term (current) drug therapy
CPT/HCPCS: 36415; 71046; 80053; 85025

== ENCOUNTER 2020-11-26 13:51 | Emergency (ER) | payer BC ==
[2020-11-26 14:05] VITALS: BP 127/85
--- NOTE | 2020-11-26 14:09 | Event Note ---
ED Screening Note Date of service: 11/26/20 Time: 14:08 ED Screening Note: Patient complains of congestion of her ears, nose, eyes, and throat with a cough for the past few weeks Patient was seen here 2 weeks ago for the same and given antibiotics and cough medicine Patient states she was seen by her doctor on and given another round of antibiotics and had a net negative chest x-ray She denies any fever, shortness of breath, chest pain This initial assessment/diagnostic orders/clinical plan/treatment(s) is/are subject to change based on patients health status, clinical progression and re- assessment by fellow clinical providers in the ED. Further treatment and workup at subsequent clinical providers discretion. Patient/guardian urged not to elope from the ED as their condition may be serious if not clinically assessed and managed. Initial orders include: Patient refuses to be seen in triage by provider Further evaluation in ACC
--- NOTE | 2020-11-26 15:11 | Emergency Department Report ---
- General Chief Complaint: Upper Respiratory Infection Stated Complaint: CONGESTION Time Seen by Provider: 11/26/20 14:08 Source: patient Mode of arrival: Ambulatory Limitations: No Limitations - History of Present Illness Initial Comments: Patient is a 64-year-old F Lebanese female who is presenting with sinus pain and congestion mild sore throat and a cough that is been present for approximately 2 weeks. Patient saw her primary care physician twice last week and was given first round of azithromycin which she is finished and now she is on Augmentin. She was given 1 point a steroid shot but not placed on oral prednisone. States that the day that she got the shot she felt some relief but the symptoms returned. COVID-19 testing patient was negative. She denies nausea vomiting diarrhea fevers or chills. States that she cannot breathe out of her nose and the congestion is her main concern. - Related Data Previous Rx's Medication Instructions Recorded Last Taken Type Ibuprofen [Motrin] 600 mg PO Q8H PRN #12 tablet 08/19/20 Unknown Rx Cetirizine HCl [Zyrtec 10mg tab] 10 mg PO QDAY #10 tablet 11/09/20 Unknown Rx Docusate Sodium [Colace] 100 mg PO BID PRN #20 capsule 11/09/20 Unknown Rx Amoxicillin/K Clav Tab [Augmentin 1 tab PO Q12HR #20 tab 11/17/20 Unknown Rx 875MG TAB] Benzonatate [Tessalon Perles] 100 mg PO Q8HR #30 capsule 11/17/20 Unknown Rx Fluticasone [Flonase] 1 spray NS QDAY #1 bottle 11/17/20 Unknown Rx Pseudoephedrine ER [Sudafed 12 Hr] 120 mg PO BID #20 tablet.er 11/17/20 Unknown Rx guaiFENesin/CODEINE [Robitussin AC] 5 ml PO Q6H PRN #100 oral.liqd 11/17/20 Unknown Rx Mometasone Furoate [Nasonex] 17 gm NS BID #1 spray.pump 11/26/20 Unknown Rx methylPREDNISolone [Medrol 4MG 4 mg PO DAILY #1 tab.ds.pk 11/26/20 Unknown Rx DOSEPAK (21 tabs)] Allergies Allergy/AdvReac Type Severity Reaction Status Date / Time No Known Allergies Allergy Verified 11/26/20 13:59 ED Review of Systems ROS: Stated complaint: CONGESTION Other details as noted in HPI Comment: All other systems reviewed and negative ED Past Medical Hx - Past Medical History Hx Hypertension: Yes - Social History Smoking Status: Never Smoker Substance Use Type: None - Medications Home Medications: Home Medications Medication Instructions Recorded Confirmed Last Taken Type Ibuprofen [Motrin] 600 mg PO Q8H PRN #12 tablet 08/19/20 Unknown Rx Cetirizine HCl [Zyrtec 10mg tab] 10 mg PO QDAY #10 tablet 11/09/20 Unknown Rx Docusate Sodium [Colace] 100 mg PO BID PRN #20 capsule 11/09/20 Unknown Rx Amoxicillin/K Clav Tab [Augmentin 1 tab PO Q12HR #20 tab 11/17/20 Unknown Rx 875MG TAB] Benzonatate [Tessalon Perles] 100 mg PO Q8HR #30 capsule 11/17/20 Unknown Rx Fluticasone [Flonase] 1 spray NS QDAY #1 bottle 11/17/20 Unknown Rx Pseudoephedrine ER [Sudafed 12 Hr] 120 mg PO BID #20 tablet.er 11/17/20 Unknown Rx guaiFENesin/CODEINE [Robitussin AC] 5 ml PO Q6H PRN #100 oral.liqd 11/17/20 Unknown Rx Mometasone Furoate [Nasonex] 17 gm NS BID #1 spray.pump 11/26/20 Unknown Rx methylPREDNISolone [Medrol 4MG 4 mg PO DAILY #1 tab.ds.pk 11/26/20 Unknown Rx DOSEPAK (21 tabs)] ED Physical Exam - General Limitations: No Limitations General appearance: alert, in no apparent distress - Head Head exam: Present: atraumatic, normocephalic - Eye Eye exam: Present: normal appearance, PERRL, EOMI - ENT ENT exam: Present: mucous membranes moist - Neck Neck exam: Present: normal inspection - Respiratory Respiratory exam: Present: normal lung sounds bilaterally. Absent: respiratory distress, wheezes, rales - Cardiovascular Cardiovascular Exam: Present: regular rate, normal rhythm. Absent: systolic murmur, diastolic murmur, rubs, gallop - GI/Abdominal GI/Abdominal exam: Present: soft, normal bowel sounds. Absent: distended, tenderness, guarding - Extremities Exam Extremities exam: Present: normal inspection - Back Exam Back exam: Present: normal inspection - Neurological Exam Neurological exam: Present: alert, oriented X3 - Psychiatric Psychiatric exam: Present: normal affect, normal mood - Skin Skin exam: Present: warm, dry, intact, normal color. Absent: rash ED Course Vital Signs 11/26/20 11/26/20 13:59 14:04 Temperature 98.1 F Pulse Rate 99 H Respiratory 18 Rate Blood Pressure 127/85 O2 Sat by Pulse 100 Oximetry ED Medical Decision Making - Medical Decision Making Patient has already been placed on Augmentin for sinus infection. We will start the patient on a Medrol Dosepak and Nasacort discharge patient home. Critical care attestation.: If time is entered above; I have spent that time in minutes in the direct care of this critically ill patient, excluding procedure time. ED Disposition Clinical Impression: Sinusitis Disposition: DC-01 TO HOME OR SELFCARE Is pt being admited?: No Does the pt Need Aspirin: No Condition: Stable Instructions: Sinusitis, Adult, [id number] Referrals: PRIMARY CARE, [Primary Care Provider] - 3-5 Days Time of Disposition: 15:11
== END 2020-11-26 15:46 | disposition home or self-care (01) ==
LOC: ED 13:51
DX: J32.9 Chronic sinusitis, unspecified (principal); I10 Essential (primary) hypertension; Z79.899 Other long term (current) drug therapy
CPT/HCPCS: 99282

== ENCOUNTER 2020-12-10 01:00 | Emergency (ER) | payer BC ==
--- NOTE | 2020-12-10 06:25 | Emergency Department Report ---
ED General Adult HPI - General Time Seen by Provider: 12/10/20 06:20 - History of Present Illness Initial comments: Patient 64-year-old -[place] female history of hypertension and bronchitis who presents for bronchitis for the past 3 weeks. States she was diagnosed with sinusitis by PCP 2 weeks ago and treated with amoxicillin p.o. however symptoms have returned with head congestion yellow rhinorrhea and ear pain. There is no wheezing or shortness of breath however there is persistent cough and postnasal drip. Patient denies activity intolerance BP is controlled with amlodipine p.o. There is no nausea, vomiting, lightheadedness, dizziness, diaphoresis. Symptoms are exacerbated by physician and activity described as buildup and pressure. Symptoms relieved with sitting upright and rest. There has been no fever or chills - Related Data Previous Rx's Medication Instructions Recorded Last Taken Type Ibuprofen [Motrin] 600 mg PO Q8H PRN #12 tablet 08/19/20 Unknown Rx Cetirizine HCl [Zyrtec 10mg tab] 10 mg PO QDAY #10 tablet 11/09/20 Unknown Rx Docusate Sodium [Colace] 100 mg PO BID PRN #20 capsule 11/09/20 Unknown Rx Amoxicillin/K Clav Tab [Augmentin 1 tab PO Q12HR #20 tab 11/17/20 Unknown Rx 875MG TAB] Benzonatate [Tessalon Perles] 100 mg PO Q8HR #30 capsule 11/17/20 Unknown Rx Fluticasone [Flonase] 1 spray NS QDAY #1 bottle 11/17/20 Unknown Rx Pseudoephedrine ER [Sudafed 12 Hr] 120 mg PO BID #20 tablet.er 11/17/20 Unknown Rx guaiFENesin/CODEINE [Robitussin AC] 5 ml PO Q6H PRN #100 oral.liqd 11/17/20 Unknown Rx Benzonatate [Tessalon Perles] 100 mg PO Q8HR #10 capsule 11/26/20 Unknown Rx Mometasone Furoate [Nasonex] 17 gm NS BID #1 spray.pump 11/26/20 Unknown Rx methylPREDNISolone [Medrol 4MG 4 mg PO DAILY #1 tab.ds.pk 11/26/20 Unknown Rx DOSEPAK (21 tabs)] Azithromycin 500 mg PO DAILY 5 Days #5 tablet 12/10/20 Unknown Rx guaiFENesin/CODEINE [Robitussin AC] 5 ml PO Q6H PRN #120 ml 12/10/20 Unknown Rx predniSONE [Deltasone] 20 mg PO QDAY 5 Days #5 tab 12/10/20 Unknown Rx Allergies Allergy/AdvReac Type Severity Reaction Status Date / Time No Known Allergies Allergy Verified 11/26/20 13:59 ED Review of Systems ROS: Stated complaint: Other details as noted in HPI Constitutional: denies: chills, fever Eyes: denies: eye pain, eye discharge, vision change ENT: ear pain, congestion Respiratory: cough Cardiovascular: denies: chest pain, palpitations Endocrine: no symptoms reported Gastrointestinal: denies: abdominal pain, nausea, diarrhea Genitourinary: denies: urgency, dysuria, discharge Musculoskeletal: denies: back pain, joint swelling, arthralgia Skin: denies: rash, lesions Neurological: denies: headache, weakness, paresthesias Psychiatric: denies: anxiety, depression Hematological/Lymphatic: denies: easy bleeding, easy bruising ED Past Medical Hx - Past Medical History Hx Hypertension: Yes - Social History Smoking Status: Never Smoker Substance Use Type: None - Medications Home Medications: Home Medications Medication Instructions Recorded Confirmed Last Taken Type Ibuprofen [Motrin] 600 mg PO Q8H PRN #12 tablet 08/19/20 Unknown Rx Cetirizine HCl [Zyrtec 10mg tab] 10 mg PO QDAY #10 tablet 11/09/20 Unknown Rx Docusate Sodium [Colace] 100 mg PO BID PRN #20 capsule 11/09/20 Unknown Rx Amoxicillin/K Clav Tab [Augmentin 1 tab PO Q12HR #20 tab 11/17/20 Unknown Rx 875MG TAB] Benzonatate [Tessalon Perles] 100 mg PO Q8HR #30 capsule 11/17/20 Unknown Rx Fluticasone [Flonase] 1 spray NS QDAY #1 bottle 11/17/20 Unknown Rx Pseudoephedrine ER [Sudafed 12 Hr] 120 mg PO BID #20 tablet.er 11/17/20 Unknown Rx guaiFENesin/CODEINE [Robitussin AC] 5 ml PO Q6H PRN #100 oral.liqd 11/17/20 Unknown Rx Benzonatate [Tessalon Perles] 100 mg PO Q8HR #10 capsule 11/26/20 Unknown Rx Mometasone Furoate [Nasonex] 17 gm NS BID #1 spray.pump 11/26/20 Unknown Rx methylPREDNISolone [Medrol 4MG 4 mg PO DAILY #1 tab.ds.pk 11/26/20 Unknown Rx DOSEPAK (21 tabs)] Azithromycin 500 mg PO DAILY 5 Days #5 tablet 12/10/20 Unknown Rx guaiFENesin/CODEINE [Robitussin AC] 5 ml PO Q6H PRN #120 ml 12/10/20 Unknown Rx predniSONE [Deltasone] 20 mg PO QDAY 5 Days #5 tab 12/10/20 Unknown Rx ED Physical Exam - General General appearance: alert, in no apparent distress - Head Head exam: Present: atraumatic, normocephalic - Eye Eye exam: Present: normal appearance, EOMI Pupils: Present: normal accommodation - ENT ENT exam: Present: mucous membranes moist, TM's normal bilaterally, normal external ear exam, other (yellow green rhonorrhea turbinate boggys bilat maxillary sinius pain to palpation) - Neck Neck exam: Present: normal inspection, full ROM. Absent: tenderness, meningismus, lymphadenopathy, thyromegaly - Respiratory Respiratory exam: Present: normal lung sounds bilaterally. Absent: respiratory distress, wheezes, rales, rhonchi, stridor, chest wall tenderness - Cardiovascular Cardiovascular Exam: Present: regular rate, normal rhythm, normal heart sounds. Absent: systolic murmur, diastolic murmur, rubs, gallop - GI/Abdominal GI/Abdominal exam: Present: soft, normal bowel sounds. Absent: distended, tenderness, guarding, rebound, rigid, bruit, hernia - Rectal Rectal exam: Present: deferred - Extremities Exam Extremities exam: Present: normal inspection, full ROM, normal capillary refill. Absent: tenderness - Back Exam Back exam: Present: normal inspection, full ROM. Absent: tenderness, CVA tenderness (R), CVA tenderness (L) - Neurological Exam Neurological exam: Present: alert, oriented X3, CN II-XII intact, normal gait, reflexes normal - Psychiatric Psychiatric exam: Present: normal affect, normal mood - Skin Skin exam: Present: warm, dry, intact, normal color. Absent: rash ED Medical Decision Making - Medical Decision Making Exam consistent with sinusitis will change antibiotic to azithromycin, patient will continue albuterol inhaler as needed short burst of prednisone Benadryl follow-up with primary care doctor Dr. Fofana in 2 to 3 days. Patient will return to emergency should symptoms worsen. Patient verbalized agreement and understanding discharge plan patient DC'd home in stable condition at this time. Critical care attestation.: If time is entered above; I have spent that time in minutes in the direct care of this critically ill patient, excluding procedure time. ED Disposition Clinical Impression: Sinusitis Qualifiers: Sinusitis location: maxillary Chronicity: acute Recurrence: recurrent Qualified Code(s): J01.01 - Acute recurrent maxillary sinusitis Disposition: DC-01 TO HOME OR SELFCARE Is pt being admited?: No Does the pt Need Aspirin: No Condition: Stable Instructions: Sinusitis, Adult, [id number] Additional Instructions: follow up with Dr Anaya in 2-3 days return to emergency if symptoms worsen Prescriptions: Azithromycin 500 mg PO DAILY 5 Days #5 tablet predniSONE [Deltasone] 20 mg PO QDAY 5 Days #5 tab guaiFENesin/CODEINE [Robitussin AC] 5 ml PO Q6H PRN #120 ml PRN Reason: cough Referrals: DANNIE GOTTLIEB MD [Staff Physician] - 3-5 Days Forms: Work/School Release Form(ED) Time of Disposition: 06:28
[2020-12-10 06:36] VITALS: BP 149/98
== END 2020-12-10 06:32 | disposition home or self-care (01) ==
LOC: ED 01:00
DX: J32.9 Chronic sinusitis, unspecified (principal); I10 Essential (primary) hypertension; Z79.1 Long term (current) use of non-steroidal anti-inflammatories (NSAID); Z79.2 Long term (current) use of antibiotics; Z79.899 Other long term (current) drug therapy
CPT/HCPCS: 99281

== ENCOUNTER 2020-12-21 13:06 | Emergency (ER) | payer BC ==
[2020-12-21 13:59] VITALS: BP 162/94
--- NOTE | 2020-12-21 14:06 | Emergency Department Report ---
ED General Adult HPI - General Chief complaint: Upper Respiratory Infection Stated complaint: COUGH Time Seen by Provider: 12/21/20 14:01 Source: patient Mode of arrival: Ambulatory Limitations: No Limitations - History of Present Illness Initial comments: Is a pleasant 65-year-old female who presents the emergency department chief complaint of cough and congestion. Patient reports this has been ongoing for the past few days. She has followed up with her primary care doctor and is scheduled to see an ear nose and throat doctor but is not been able to see them yet. She reports she is a former tobacco user of nearly 20 years. She denies any chest pain, shortness breath, nausea, vomit, diarrhea, weakness or any other associated symptoms. On chart review the patient has been to this ER multiple times for similar complaints and usually request codeine cough syrup. - Related Data Previous Rx's Medication Instructions Recorded Last Taken Type Ibuprofen [Motrin] 600 mg PO Q8H PRN #12 tablet 08/19/20 Unknown Rx Cetirizine HCl [Zyrtec 10mg tab] 10 mg PO QDAY #10 tablet 11/09/20 Unknown Rx Docusate Sodium [Colace] 100 mg PO BID PRN #20 capsule 11/09/20 Unknown Rx Amoxicillin/K Clav Tab [Augmentin 1 tab PO Q12HR #20 tab 11/17/20 Unknown Rx 875MG TAB] Benzonatate [Tessalon Perles] 100 mg PO Q8HR #30 capsule 11/17/20 Unknown Rx Fluticasone [Flonase] 1 spray NS QDAY #1 bottle 11/17/20 Unknown Rx Pseudoephedrine ER [Sudafed 12 Hr] 120 mg PO BID #20 tablet.er 11/17/20 Unknown Rx guaiFENesin/CODEINE [Robitussin AC] 5 ml PO Q6H PRN #100 oral.liqd 11/17/20 Unknown Rx Benzonatate [Tessalon Perles] 100 mg PO Q8HR #10 capsule 11/26/20 Unknown Rx Mometasone Furoate [Nasonex] 17 gm NS BID #1 spray.pump 11/26/20 Unknown Rx methylPREDNISolone [Medrol 4MG 4 mg PO DAILY #1 tab.ds.pk 11/26/20 Unknown Rx DOSEPAK (21 tabs)] Azithromycin 500 mg PO DAILY 5 Days #5 tablet 12/10/20 Unknown Rx guaiFENesin/CODEINE [Robitussin AC] 5 ml PO Q6H PRN #120 ml 12/10/20 Unknown Rx predniSONE [Deltasone] 20 mg PO QDAY 5 Days #5 tab 12/10/20 Unknown Rx Azithromycin [Zithromax Z-HIGINIO] 250 mg PO DAILY #6 tablet 12/21/20 Unknown Rx Prednisone [predniSONE 5 mg (6-Day 5 mg PO .TAPER #1 tab.ds.pk 12/21/20 Unknown Rx Pack, 21 Tabs)] Promethazine Dm (Nf) [Phenergan DM 5 ml PO Q6H PRN #120 12/21/20 Unknown Rx 6.25-15 mg/5 ml] Allergies Allergy/AdvReac Type Severity Reaction Status Date / Time No Known Allergies Allergy Verified 11/26/20 13:59 ED Review of Systems ROS: Stated complaint: COUGH Other details as noted in HPI Comment: All other systems reviewed and negative Constitutional: denies: chills, fever Eyes: denies: eye pain, eye discharge, vision change ENT: denies: ear pain, throat pain Respiratory: cough. denies: shortness of breath, wheezing Cardiovascular: denies: chest pain, palpitations Endocrine: no symptoms reported Gastrointestinal: denies: abdominal pain, nausea, diarrhea Genitourinary: denies: urgency, dysuria, discharge Musculoskeletal: denies: back pain, joint swelling, arthralgia Skin: denies: rash, lesions Neurological: denies: headache, weakness, paresthesias Psychiatric: denies: anxiety, depression Hematological/Lymphatic: denies: easy bleeding, easy bruising ED Past Medical Hx - Past Medical History Previous Medical History?: Yes Hx Hypertension: Yes - Surgical History Past Surgical History?: No - Social History Smoking Status: Never Smoker Substance Use Type: None - Medications Home Medications: Home Medications Medication Instructions Recorded Confirmed Last Taken Type Ibuprofen [Motrin] 600 mg PO Q8H PRN #12 tablet 08/19/20 Unknown Rx Cetirizine HCl [Zyrtec 10mg tab] 10 mg PO QDAY #10 tablet 11/09/20 Unknown Rx Docusate Sodium [Colace] 100 mg PO BID PRN #20 capsule 11/09/20 Unknown Rx Amoxicillin/K Clav Tab [Augmentin 1 tab PO Q12HR #20 tab 11/17/20 Unknown Rx 875MG TAB] Benzonatate [Tessalon Perles] 100 mg PO Q8HR #30 capsule 11/17/20 Unknown Rx Fluticasone [Flonase] 1 spray NS QDAY #1 bottle 11/17/20 Unknown Rx Pseudoephedrine ER [Sudafed 12 Hr] 120 mg PO BID #20 tablet.er 11/17/20 Unknown Rx guaiFENesin/CODEINE [Robitussin AC] 5 ml PO Q6H PRN #100 oral.liqd 11/17/20 Unknown Rx Benzonatate [Tessalon Perles] 100 mg PO Q8HR #10 capsule 11/26/20 Unknown Rx Mometasone Furoate [Nasonex] 17 gm NS BID #1 spray.pump 11/26/20 Unknown Rx methylPREDNISolone [Medrol 4MG 4 mg PO DAILY #1 tab.ds.pk 11/26/20 Unknown Rx DOSEPAK (21 tabs)] Azithromycin 500 mg PO DAILY 5 Days #5 tablet 12/10/20 Unknown Rx guaiFENesin/CODEINE [Robitussin AC] 5 ml PO Q6H PRN #120 ml 12/10/20 Unknown Rx predniSONE [Deltasone] 20 mg PO QDAY 5 Days #5 tab 12/10/20 Unknown Rx Azithromycin [Zithromax Z-HIGINIO] 250 mg PO DAILY #6 tablet 12/21/20 Unknown Rx Prednisone [predniSONE 5 mg (6-Day 5 mg PO .TAPER #1 tab.ds.pk 12/21/20 Unknown Rx Pack, 21 Tabs)] Promethazine Dm (Nf) [Phenergan DM 5 ml PO Q6H PRN #120 12/21/20 Unknown Rx 6.25-15 mg/5 ml] ED Physical Exam - General Limitations: No Limitations General appearance: alert, in no apparent distress - Head Head exam: Present: atraumatic, normocephalic - Eye Eye exam: Present: normal appearance, PERRL, EOMI Pupils: Present: normal accommodation - ENT ENT exam: Present: normal exam, normal orophraynx, mucous membranes moist - Neck Neck exam: Present: normal inspection, full ROM. Absent: tenderness, meningismus - Respiratory Respiratory exam: Present: normal lung sounds bilaterally, chest wall tenderness. Absent: respiratory distress, wheezes, rales, rhonchi - Cardiovascular Cardiovascular Exam: Present: regular rate, normal rhythm, normal heart sounds. Absent: systolic murmur, diastolic murmur, rubs, gallop - GI/Abdominal GI/Abdominal exam: Present: soft, normal bowel sounds. Absent: distended, tenderness, guarding, rebound, rigid - Extremities Exam Extremities exam: Present: normal inspection, full ROM, normal capillary refill. Absent: tenderness, calf tenderness (no LE edema, negative gila sign bilaterally ) - Back Exam Back exam: Present: normal inspection, full ROM. Absent: tenderness, CVA tenderness (R), CVA tenderness (L) - Neurological Exam Neurological exam: Present: alert, oriented X3, CN II-XII intact, normal gait. Absent: motor sensory deficit - Psychiatric Psychiatric exam: Present: normal affect, normal mood - Skin Skin exam: Present: warm, dry, intact, normal color. Absent: rash ED Course Vital Signs 12/21/20 13:57 Temperature 98.3 F Pulse Rate 74 Respiratory 16 Rate Blood Pressure 162/94 [Right] O2 Sat by Pulse 98 Oximetry ED Medical Decision Making - Radiology Data Radiology results: image reviewed Loc: ED Attending Dr: Ordering Physician: CLEM ENGLE Date of Service: 12/21/20 Procedure(s): XR chest routine 2V Accession Number(s): [id number] cc: CLEM ENGLE Fluoro Time In Minutes: CHEST 2 VIEWS INDICATION / CLINICAL INFORMATION: cough, congestion, tobacco use. COMPARISON: Chest 2 views from 11/17/2020. FINDINGS: SUPPORT DEVICES: None. HEART / MEDIASTINUM: No significant abnormality. LUNGS / PLEURA: Clear lungs. No significant pleural effusion. No pneumothorax. ADDITIONAL FINDINGS: Mild thoracic spondylosis is present. IMPRESSION: 1. No acute abnormality of the chest. Signer Name: Jose Carlos Leary MD Signed: 12/21/2020 2:27 PM Workstation Name: [id number] - Medical Decision Making Patient nontoxic in no acute distress. Vital signs are stable. She has no tachycardia or hypoxia and low risk Wells risk for PE. Patient has a long history of tobacco use and a suspect she has underlying undiagnosed COPD and likely a exacerbation at this time. I will treat her with azithromycin to cover for an atypical infection, Monica Moore and a short course of steroids and recommended pulmonology follow-up. She verbalized understanding of the diagnosis, treatment plan and follow-up instructions and all of her questions were answered. - Differential Diagnosis COPD exacerbation, pneumonia, COVID-19 Critical care attestation.: If time is entered above; I have spent that time in minutes in the direct care of this critically ill patient, excluding procedure time. ED Disposition Clinical Impression: COPD with exacerbation Disposition: DC-01 TO HOME OR SELFCARE Is pt being admited?: No Condition: Stable Instructions: Chronic Obstructive Pulmonary Disease (ED), Chronic Obstructive Pulmonary Disease Prescriptions: Promethazine Dm (Nf) [Phenergan DM 6.25-15 mg/5 ml] 5 ml PO Q6H PRN #120 PRN Reason: Cough Prednisone [predniSONE 5 mg (6-Day Pack, 21 Tabs)] 5 mg PO .TAPER #1 tab.ds.pk Azithromycin [Zithromax Z-HIGINIO] 250 mg PO DAILY #6 tablet Referrals: TYRON MAE MD [Staff Physician] - 3-5 Days Time of Disposition: 14:56
--- NOTE | 2020-12-21 14:32 | XRay Report ---
CHEST 2 VIEWS INDICATION / CLINICAL INFORMATION: cough, congestion, tobacco use. COMPARISON: Chest 2 views from 11/17/2020. FINDINGS: SUPPORT DEVICES: None. HEART / MEDIASTINUM: No significant abnormality. LUNGS / PLEURA: Clear lungs. No significant pleural effusion. No pneumothorax. ADDITIONAL FINDINGS: Mild thoracic spondylosis is present. IMPRESSION: 1. No acute abnormality of the chest. Signer Name: Jose Carlos Leary MD Signed: 12/21/2020 2:27 PM Workstation Name: [id number]
== END 2020-12-21 15:38 | disposition home or self-care (01) ==
LOC: ED 13:06
DX: J44.1 Chronic obstructive pulmonary disease with (acute) exacerbation (principal); I10 Essential (primary) hypertension; Z79.899 Other long term (current) drug therapy
CPT/HCPCS: 71046

== ENCOUNTER 2020-12-28 06:30 | Emergency (ER) | payer BC ==
[2020-12-28] MEDS ORDERED: ACETAMINOPHEN 500 MG TAB PO ONE (08:30)
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
[2020-12-28 11:15] VITALS: BP 152/86
== END 2020-12-28 11:18 | disposition home or self-care (01) ==
LOC: ED 06:30
DX: S01.111A Laceration without foreign body of right eyelid and periocular area, initial encounter (principal); I10 Essential (primary) hypertension; Z79.1 Long term (current) use of non-steroidal anti-inflammatories (NSAID); Z79.2 Long term (current) use of antibiotics; Z79.899 Other long term (current) drug therapy; V49.59XA Passenger injured in collision with other motor vehicles in traffic accident, initial encounter; Y93.89 Activity, other specified; Y92.410 Unspecified street and highway as the place of occurrence of the external cause; Y99.8 Other external cause status
CPT/HCPCS: 70450; 70486